=== PATIENT | male | born 1995 | race Caucasian/White ===

== ENCOUNTER 2022-12-06 17:35 | Emergency (ER) | payer OTHER ==
[~2022-12-06] VITALS: Ht 172.7 cm; Wt 58.1 kg
[2022-12-06 19:14] VITALS: BP 131/79
[2022-12-06] MEDS ORDERED: ACET-8001 PO (20:02)
[2022-12-06] MEDS ORDERED: ACET-10509 PO (20:02)
[2022-12-06 20:23] VITALS: BP 128/72
== END 2022-12-06 20:23 | disposition home or self-care (01) ==
LOC: MED 17:35
DX: U07.1 COVID-19 (principal); Z79.899 Other long term (current) drug therapy
CPT/HCPCS: 99283

== ENCOUNTER 2023-09-15 01:45 | Emergency (ER) | payer OTHER ==
[~2023-09-15] VITALS: Ht 175.3 cm; Wt 61.2 kg
[~2023-09-15 01:45] MED LIST: ACET-10509 PO; ACET-8001 PO
[2023-09-15 02:10] VITALS: BP 126/77; PULSE 110; RESP 16; TEMP 101.5; O2SAT 100
[2023-09-15 02:42] VITALS: O2SAT 99
[2023-09-15] MEDS ORDERED: ACETAMINOPHEN EXTRA STRENGTH 500 MG TAB PO ONE (02:45)
[2023-09-15] MEDS ORDERED: KETOROLAC 30 MG/ML VIAL IVP ONE (02:45)
[2023-09-15] MEDS ORDERED: NACL 0.9% 1,000 ML IV ONE (02:45)
[2023-09-15 03:01] LABS: BASOPHILS # (AUTO) 0.1 K/uL (0.00-0.22); BASOPHILS % (AUTO) 0.6 % (0.0-2.0); EOSINOPHILS # (AUTO) 0.1 K/uL (0-0.4); EOSINOPHILS % (AUTO) 1.6 % (0.0-4.0); HEMOGLOBIN 15.7 g/dL (12.0-18.0); LYMPHOCYTES # (AUTO) 1.3 K/uL (2.0-11.5); LYMPHOCYTES % (AUTO) 14.3 % (20.5-51.1); MEAN CORPUSCULAR HEMOGLOBIN 31 pg (27-31); MEAN CORPUSCULAR HGB CONC 33 g/dL (33-37); MONOCYTES # (AUTO) 0.6 K/uL (0.8-1.0); MONOCYTES % (AUTO) 6.5 % (1.7-9.3); PLATELET COUNT (AUTO) 183 K/uL (140-450); RED BLOOD CELL COUNT(AUTO) 5.11 MIL/uL (4.20-6.10); RED CELL DISTRIBUTION WIDTH 13.7 % (11.6-13.7); WHITE BLOOD COUNT (AUTO) 9.1 K/uL (4.8-10.8)
[2023-09-15 03:12] LABS: ANION GAP 8.8 (8-16); CALCIUM 8.6 mg/dL (8.5-10.1); CARBON DIOXIDE 31.2 mmol/L (21-32); CREATININE 1.1 mg/dL (0.6-1.3)
[2023-09-15 03:33] LABS: FLU A ANTIGEN negative (NEGATIVE); FLU B ANTIGEN NEGATIVE (NEGATIVE)
[2023-09-15 03:52] VITALS: BP 131/82; PULSE 110; RESP 17; TEMP 98.5; O2SAT 99
== END 2023-09-15 03:52 | disposition home or self-care (01) ==
LOC: MED 01:45
DX: U07.1 COVID-19 (principal); Z79.899 Other long term (current) drug therapy
CPT/HCPCS: 36415; 71045; 80048; 84484; 85025; 87426; 87804; 93005; 96361; 96374; 99285; J1885; J7030; Q0092